=== PATIENT | female | born 1930 | race Caucasian/White ===

== ENCOUNTER 2016-11-01 22:27 | Emergency (ER) | payer MEDICARE, OTHER ==
[~2016-11-01] VITALS: Ht 152.4 cm; Wt 62.7 kg
[~2016-11-01 22:27] MED LIST: ALLO300T2 PO; ASCO1TAB12 PO; ATEN25TA PO; CHOL10008 PO; DIAZ10TA3 PO; FISH1CAP16 PO; FUR20 PO; GEMF600T3 PO; LEVO50TA6 PO; LISI-567 PO; LOPE1TAB13 PO; MAGN100T5 PO; NITR0.4T6 SL; OMEG1CAP25 PO; POTA20TA16 PO; WARF5TAB7 PO
[2016-11-01 22:28] VITALS: BP 124/73; PULSE 81; RESP 16; O2SAT 98
[2016-11-01 23:11] VITALS: BP 123/60; PULSE 67; RESP 16; O2SAT 98
[2016-11-01 23:11] LABS: BASOPHILS % (AUTO) 0.4 % (0-3); EOSINOPHILS % (AUTO) 2.2 % (0-5); MONOCYTES % (AUTO) 14.5 % (4-12); Mean Corpuscular Hemoglobin 33.4 pg (27.0-35.0); Mean Corpuscular Volume 100.2 fL (81-100); NEUTROPHILS % (AUTO) 49.1 % (40-74); Platelet Count 176 bil/L (150-400)
--- NOTE | 2016-11-01 23:16 | ED.REPORT ---
HPI-Chest Pain 40 and Over Date of Service Nov 01, 2016 ED Provider: Tyrone Mcgregor MD The pt is a 86 y/o female w/ a hx of chronic atrial fibrillation on Coumadin, congestive heart failure, and hypertension coming into the ED complaining of sharp substernal chest pain onset this evening. Patient reports previously experiencing angina, but this pain was different from prior episodes. She describes the pain as radiating up to her ears and jaw, which has not happened to her previously. Patient states that her symptoms started after she drank a cold glass of water. The patient took 2x doses of nitroglycerin ( 2012), waiting 15 minutes between doses The patient resolved after the second dose. Patient also reports recent dyspnea on exertion but is not currently short of breath. She had never had a heart attack or stent, and had a stress test on 02/02 which showed normal myocardial perfusion images. Yawning and standing up makes the pain return briefly. She was also taking an antibiotic for MRSA on her left leg, last changing the dressing this afternoon at 1pm. She developed diarrhea from the antibiotic and is taking Imodium and yogurt. Her PCP is Erika Fabian but she has only newly established with this physician. The patient does not have a POLST form. Nursing Notes Stated Complaint: CHEST PAIN Chief Complaint: Chest Pain Nursing Notes Reviewed: Yes Allergies: Coded Allergies: fenofibrate (Verified Allergy, Intermediate, RASH, 11/01/16) Scheduled Allopurinol (Allopurinol) 300 Mg Tablet 300 MG PO DAILY Ascorbate Calcium/Bioflavonoid (Jenny-C 500 mg Tablet) 1 Each Tablet 1 EACH PO DAILY Atenolol (Atenolol) 25 Mg Tablet 25 MG PO DAILY Cholecalciferol (Vitamin D3) (Vitamin D3) 1,000 Unit Tab.chew 1,000 UNIT PO DAILY Furosemide (Furosemide) 20 Mg Tab 20 MG PO DAILY Gemfibrozil (Gemfibrozil) 600 Mg Tablet 600 MG PO BIDAC Levothyroxine (Levothyroxine) 50 Mcg Tablet 50 MCG PO DAILY Lisinopril (Lisinopril) 20 Mg Tablet 20 MG PO DAILY Loperamide/Simethicone (Imodium Multi-Symptom Rel Cplt) 1 Each Tablet 2 EACH PO BID After first loose stool, 1 tablet (2mg) after each subsequent bowel movement. Do not exceed 16mg in 24 hours Magnesium Amino Acid Chelate (Magnesium) 100 Mg Tablet 100 MG PO DAILY Austin-3 Fatty Acids/Fish Oil (Austin 3 Fish Oil Softgel) 1 Each Capsule.dr 2 EACH PO DAILY Potassium Chloride (Potassium Chloride) 20 Meq Tab.er.prt 20 MEQ PO DAILY TAKE WITH FOOD Warfarin Sodium (Warfarin Sodium) 5 Mg Tablet 7.5 MG PO Mo, Th Warfarin Sodium (Warfarin Sodium) 5 Mg Tablet 5 MG PO Tu,We,Fr,Sa, Price Scheduled PRN Diazepam (Diazepam) 10 Mg Tablet 5-10 MG PO TID PRN PRN For Anxiety Nitroglycerin SL (Nitroglycerin SL) 0.4 Mg Tab.subl 0.4 MG SL PRN For Chest Pain Miscellaneous Medications Fish Oil/Borage/Flax/Om3,6,9#1 ([place] 3-6-9 Complex Softgel) 400 Mg Capsule 400 MG PO General Time Seen by MD: 23:05 Chief Complaint Chest pain Hx Obtained From: Patient Arrived By: Walk-in Sudden in Onset?: Yes Onset Occurred: 5 - 8 hours ago Symptom Duration: Intermittent Location: : Substernal Quality: Painful Severity: Current: No pain currently Severity: Maximum: Moderate Recent Healthcare: No recent hospitalization, Recent doctor visit Similar Sx Previous: Yes Past Medical History Past Medical History 1. Chronic atrial fibrillation. 2. Coumadin anticoagulation. 3. Hypertension. 4. Hyperlipidemia. 5. MRSA left leg 6. Hypothyroidism. 7. Gout. 8. Sigmoid diverticulosis with history of diverticulitis. 9. Multiple knee surgeries. 10. Tubal ligation. 12. CHF 13. Pulmonary HTN Past Surgical History Reports: Tubal ligation Smoking History Never Smoker Social History Alcohol Use: 1-3 per week Other Social History: Good social support, Lives alone, Local resident Review of Systems Respiratory: Reports: Dyspnea on exertion, Denies: Shortness of breath Cardiovascular: Reports: Chest pain (Intermittent and radiates up to jaw and ears), Dyspnea on exertion GI: Reports: Diarrhea Complete sys rev & neg: except as marked. Physical Exam Initial Vital Signs Vital Signs (First) Date Time Temp Pulse Resp B/P Pulse Ox O2 Delivery O2 Flow Rate FiO2 11/01/16 22:28 36.2 81 16 124/73 98 Room Air Initial VS: Reviewed, Vital signs normal Head / Eyes: Atraumatic, Normocephalic, PERRL ENT: Conjunctiva normal, No scleral icterus Skin: Warm, Dry, No cyanosis Neurologic: Alert, Oriented, Nonfocal Psychiatric: Mood/affect normal, Behavior normal, Normal thought content General/Constitutional: Awake, Alert, No acute distress, Well hydrated Respiratory / Chest: Atraumatic, Breath sounds NL, Breath sounds = bilat, No respiratory distress, No rales, No rhonchi, No wheezing, No chest tenderness Cardiovascular: Heart rate NL, Regular rhythm, Heart sounds NL, No murmurs Abdomen: Atraumatic, Soft Neck: Supple, No JVD Lower Extremity / Pelvis / MS: No swelling, No edema Upper Extremity / MS: No swelling, No edema Interpretation & Diagnostics Lab Results Interpretation Result Diagram: 11/01/16 2255 11/01/16 2255 Test 11/01/16 22:55 11/02/16 01:03 White Blood Count 8.1th/mm3 (3.8-10.1) Red Blood Count 4.10mil/mm3 (3.90-5.20) Hemoglobin 13.7g/dL (12.0-15.6) Hematocrit 41.1% (35.0-46.0) Mean Corpuscular Volume 100.2fL (81-100) Mean Corpuscular Hemoglobin 33.4pg (27.0-35.0) Mean Corpuscular Hemoglobin Concent 33.3% (32.0-37.0) Red Cell Distribution Width 14.2% (12.3-15.4) Platelet Count 176bil/L (150-400) Neutrophils (%) (Auto) 49.1% (40-74) Lymphocytes (%) (Auto) 33.7% (14-46) Monocytes (%) (Auto) 14.5% (4-12) Eosinophils (%) (Auto) 2.2% (0-5) Basophils (%) (Auto) 0.4% (0-3) Sodium Level 134mEq/L (134-144) Potassium Level 3.8mEq/L (3.5-5.2) Chloride Level 96mEq/L (97-108) Carbon Dioxide Level 22mmol/L (18-29) Blood Urea Nitrogen 27mg/dL (8-27) Creatinine 1.00mg/dL (0.57-1.00) Estimat Glomerular Filtration Rate 75mL/min (>59) Glucose Level 119mg/dL (60-99) Calcium Level 9.5mg/dL (8.5-10.1) Magnesium Level 1.8mg/dL (1.6-2.6) Total Bilirubin 0.8mg/dL (0.0-1.2) Aspartate Amino Transf (AST/SGOT) 35U/L (0-50) Alanine Aminotransferase (ALT/SGPT) 15U/L (0-32) Alkaline Phosphatase 69U/L (25-165) Troponin T 0.010ug/L (0.0-0.011) Total Protein 6.5g/dL (6.4-8.4) Albumin 3.5g/dL (3.4-5.0) Hold Garg Top Tube Received (Received) Hold Urine Received (Received) Lab values outside NL range: no clinical significance. ECG Interpretation ECG Interpretation: Rate 68 Atrial fibrillation LVH with secondary repolarization abnormality Time: 22:50 Interpreted by: ED physician ECG Interpretation: Rate 67 Atrial fibrillation Probable LVH with secondary repolarization abnormality Interpreted by: ED physician Normal ECG Interpretation: No change from prior ECGs X-Ray Chest Interpretation Chest Xray Interpretation: Impression: No acute disease View: Portable, 1 view Interpretation / Wet Read by: Wet read ED physician Re-Eval/Medical Decision Med Decision/Clinical Course 86-year-old female who had an episode of chest pain several hours ago relieved by 2 nitroglycerin. She states that its different than her usual angina and seemed to be related to swallowing and yawning. She thought it might be from her esophagus. EKG 2 are negative. Troponin is negative. She has never had an PA or stent placement. She had a negative nuclear medicine heart scan in 2012. I suspicion for heart disease as a causative agent is very low. She will be discharged home to maximize antacid treatment. Source of Hx: Old records Time of Eval: 02:15 Patient Status: Condition improved Re-Evaluation/Progress Note: Pt rechecked. Informed pt of plan for treatment. Chest x-ray, EKG, and labs were negative. Pt understands and agrees with plan for treatment. F/U instructions and RTER warnings given. All questions addressed. Counseled Regarding: Diagnosis, Lab results, Need for follow-up, When/why to return to ED Discharge & Departure Primary Impression: Chest pain with low risk of acute coronary syndrome Disposition: Home Discharge Condition All VS Reviewed: Yes Condition: Stable Patient Instructions: Chest Pain (ED) Additional Instructions: Your EKG 2 is normal. There is no elevation of your heart enzyme test. All the other testing that we have done is also normal. I suspect that your discomfort is related to GERD and esophageal spasm. Return to the emergency room if you get significant or sustained worsening of your pain. Follow up with your regular doctor to discuss further evaluation. Referrals: Lorena Fabian MD (PCP) Scribe Attestation Portions of this note were transcribed by Clyde Walsh and Marian Pedroza. I, Dr. Mcgregor personally performed the history, physical exam and medical decision- making; I reviewed and confirmed the accuracy of the information in the transcribed note. Signed by: Clyde Walsh and Marian Pedroza, Scribes, 11/01/16 and 0343. copies to: Lorena Fabian MD, Howard L MD Nov 01, 2016 23:16 lCyde Walsh Nov 01, 2016 23:25 Marian Pedroza Nov 02, 2016 03:29
[2016-11-01 23:59] LABS: Magnesium 1.8 mg/dL (1.6-2.6); TROPONIN T 0.01 ug/L (0.0-0.011)
[2016-11-02 00:27] VITALS: BP 116/63; PULSE 62; RESP 14; O2SAT 98
[2016-11-02 01:43] VITALS: BP 104/61; PULSE 63; RESP 14; O2SAT 99
[2016-11-02 02:56] VITALS: BP 109/75; PULSE 63; RESP 16; O2SAT 99
--- NOTE | 2016-11-02 06:43 | DRSVH ---
PROCEDURE: X-RAY CHEST ONE VIEW, PORTABLE ([id number]) INDICATIONS: chest pain TECHNIQUE: One view of the chest was acquired. COMPARISON: [facility], CR, XR CHEST 1VW (PORTABLE), 06/16/2015, 15:54. FINDINGS: Surgical changes and devices: None. Lungs and pleura: No pleural effusions or pneumothorax. Mild increased vascularity. Mediastinum: Mediastinal contours appear normal. Heart size is enlarged. Bones and chest wall: No suspicious bony lesions. Overlying soft tissues appear unremarkable. IMPRESSION: Cardiomegaly with increased pulmonary vascularity suggestive of edema. Dictated by: Tavia Alcocer M.D. on 11/02/2016 at 6:40 Approved by: Tavia Alcocer M.D. on 11/02/2016 at 6:41
== END 2016-11-02 02:57 | disposition home or self-care (01) ==
LOC: SED 22:27
DX: R07.2 Precordial pain (principal); I11.0 Hypertensive heart disease with heart failure; I48.2 Chronic atrial fibrillation; E03.9 Hypothyroidism, unspecified; Z79.01 Long term (current) use of anticoagulants; Z88.8 Allergy status to other drugs, medicaments and biological substances

== ENCOUNTER 2017-01-04 18:10 | Emergency (ER) | payer MEDICARE, OTHER ==
[~2017-01-04] VITALS: Ht 152.4 cm; Wt 68.5 kg
[2017-01-04 18:16] VITALS: BP 126/73; PULSE 75; RESP 20; O2SAT 97
== END 2017-01-04 19:13 | disposition left against medical advice (07) ==
LOC: SED 18:29
DX: Z53.21 Procedure and treatment not carried out due to patient leaving prior to being seen by health care provider (principal)

== ENCOUNTER 2017-02-06 02:41 | Observation (INO) | payer MEDICARE, OTHER ==
[~2017-02-06] VITALS: Ht 152.4 cm; Wt 62.7 kg
[2017-02-06] VITALS (9 sets, daily range): BP systolic 94–125; BP diastolic 49–72; PULSE 58–92; RESP 16–27; O2SAT 94–100
--- NOTE | 2017-02-06 02:56 | ED.REPORT ---
HPI-Trauma Minor / Fall Date of Service Feb 06, 2017 ED Provider: Tyrone Mcgregor MD Pt is an 86 y/o female anticoagulated on Warfarin w/ a hx of chronic a-fib, HTN , HLD, CHF, recurrent lower extremity cellulitis, presenting to the ED via EMS due to ground level fall which occurred prior to arrival. The patient lives with her friend who was sleeping and he heard a thud in the kitchen prompting him to find her on the ground with mildly decreased LOC. She is normally sharp and AOx4 but after the fall she has been slightly altered. EMS arrived to find the patient on the ground with GCS of 14. She does not remember the fall but remembers the events prior to and after it. No obvious head trauma, blood sugar 110. Her systolic BP was found to be in the 80s therefore EMS gave the patient NS on route with good improvement. She denies any pain. Nursing Notes Stated Complaint: DECREASED LOC Chief Complaint: Multiple Trauma/Fall Nursing Notes Reviewed: Yes Allergies: Coded Allergies: fenofibrate (Verified Allergy, Intermediate, RASH, 02/06/17) Scheduled Allopurinol (Allopurinol) 300 Mg Tablet 300 MG PO DAILY Ascorbate Calcium/Bioflavonoid (Jenny-C 500 mg Tablet) 1 Each Tablet 1 EACH PO DAILY Atenolol (Atenolol) 25 Mg Tablet 25 MG PO DAILY Cholecalciferol (Vitamin D3) (Vitamin D3) 1,000 Unit Tab.chew 1,000 UNIT PO DAILY Furosemide (Furosemide) 20 Mg Tab 20 MG PO DAILY Gemfibrozil (Gemfibrozil) 600 Mg Tablet 600 MG PO BIDAC Levothyroxine (Levothyroxine) 50 Mcg Tablet 50 MCG PO DAILY Lisinopril (Lisinopril) 20 Mg Tablet 20 MG PO DAILY Loperamide/Simethicone (Imodium Multi-Symptom Rel Cplt) 1 Each Tablet 2 EACH PO BID After first loose stool, 1 tablet (2mg) after each subsequent bowel movement. Do not exceed 16mg in 24 hours Magnesium Amino Acid Chelate (Magnesium) 100 Mg Tablet 100 MG PO DAILY [place]edar-3 Fatty Acids/Fish Oil ([place]edar 3 Fish Oil Softgel) 1 Each Capsule.dr 2 EACH PO DAILY Potassium Chloride (Potassium Chloride) 20 Meq Tab.er.prt 20 MEQ PO DAILY TAKE WITH FOOD Warfarin Sodium (Warfarin Sodium) 5 Mg Tablet 7.5 MG PO Mo, Th Warfarin Sodium (Warfarin Sodium) 5 Mg Tablet 5 MG PO Tu,We,Fr,Sa, Price Scheduled PRN Diazepam (Diazepam) 10 Mg Tablet 5-10 MG PO TID PRN PRN For Anxiety Nitroglycerin SL (Nitroglycerin SL) 0.4 Mg Tab.subl 0.4 MG SL PRN For Chest Pain Miscellaneous Medications Fish Oil/Borage/Flax/Om3,6,9#1 ([place] 3-6-9 Complex Softgel) 400 Mg Capsule 400 MG PO General Time Seen by MD: 02:41 Chief Complaint Fall Hx Obtained From: Patient, EMS Arrived By: Ambulance Onset Occurred: Just prior to arrival Symptom Duration: Since onset Severity: Current: No pain currently Severity: Maximum: No pain Similar Sx Previous: No Past Medical History Past Medical History 1. Chronic atrial fibrillation. 2. Coumadin anticoagulation. 3. Hypertension. 4. Hyperlipidemia. 5. MRSA left leg 6. Hypothyroidism. 7. Gout. 8. Sigmoid diverticulosis with history of diverticulitis. 9. Multiple knee surgeries. 10. Tubal ligation. 12. CHF 13. Pulmonary HTN Past Surgical History Reports: Tubal ligation Smoking History Never Smoker Social History Alcohol Use: 1-3 per week Other Social History: Good social support, Lives alone, Local resident Ambulatory Status Independent Review of Systems Musculoskeletal: Denies: Back pain, Extremity pain, Neck pain Neurologic: Reports: Change LOC, Denies: Headache Complete sys rev & neg: except as marked. Cardiovascular: Denies: Chest pain GI: Denies: Abdominal pain Physical Exam Initial Vital Signs Vital Signs (First) Date Time Temp Pulse Resp B/P Pulse Ox O2 Delivery O2 Flow Rate FiO2 02/06/17 02:45 36.6 72 24 99/60 96 Room Air Initial VS: Reviewed, Vital signs abnormal Head / Eyes: Atraumatic, Normocephalic, PERRL ENT: Mucous membranes moist, Conjunctiva normal, No scleral icterus Abdomen / GI: Soft, Non-tender, No guarding, No rebound, No distention Skin: Warm, Dry, No cyanosis Neurologic: Alert, Oriented, Nonfocal Psychiatric: Mood/affect normal, Behavior normal, Normal thought content General/Constitutional: Awake, Alert, No acute distress, Cooperative, Not toxic appearing Sleeping but easily arousable Neck: Atraumatic, Supple, Full range of motion, Non-tender, No midline vertebral tend Respiratory / Chest: Breath sounds NL, Breath sounds = bilat, No respiratory distress, No rales, No rhonchi, No wheezing, No stridor, No chest tenderness Cardiovascular: Heart rate NL, Heart sounds NL, No murmurs Heart Rate / Rhythm: Positive: Irreg irregular rhythm Upper Extremity / MS: No deformity, Neurologic intact, Vascular intact Skin tear over left elbow Interpretation & Diagnostics Lab Results Interpretation Result Diagram: 02/06/17 0245 02/06/17 0245 Test 02/06/17 02:45 White Blood Count 9.4th/mm3 (3.8-10.1) Red Blood Count 3.81mil/mm3 (3.90-5.20) Hemoglobin 12.8g/dL (12.0-15.6) Hematocrit 37.8% (35.0-46.0) Mean Corpuscular Volume 99.2fL (81-100) Mean Corpuscular Hemoglobin 33.6pg (27.0-35.0) Mean Corpuscular Hemoglobin Concent 33.9% (32.0-37.0) Red Cell Distribution Width 16.7% (12.3-15.4) Platelet Count 162bil/L (150-400) Neutrophils (%) (Auto) 45.1% (40-74) Lymphocytes (%) (Auto) 39.4% (14-46) Monocytes (%) (Auto) 13.4% (4-12) Eosinophils (%) (Auto) 1.9% (0-5) Basophils (%) (Auto) 0.1% (0-3) Prothrombin Time 12.9sec (8.1-12.5) Prothromb Time International Ratio 1.20ratio Sodium Level 133mEq/L (134-144) Potassium Level 4.3mEq/L (3.5-5.2) Chloride Level 100mEq/L (97-108) Carbon Dioxide Level 18mmol/L (18-29) Blood Urea Nitrogen 33mg/dL (8-27) Creatinine 1.15mg/dL (0.57-1.00) Estimat Glomerular Filtration Rate 64mL/min (>59) Glucose Level 100mg/dL (60-99) Calcium Level 9.5mg/dL (8.5-10.1) Magnesium Level 1.9mg/dL (1.6-2.6) Total Bilirubin 0.7mg/dL (0.0-1.2) Aspartate Amino Transf (AST/SGOT) 43U/L (0-50) Alanine Aminotransferase (ALT/SGPT) 23U/L (0-32) Alkaline Phosphatase 70U/L (25-165) Troponin T 0.014ug/L (0.0-0.011) Total Protein 5.9g/dL (6.4-8.4) Albumin 3.2g/dL (3.4-5.0) ECG Interpretation ECG Interpretation: A-fib rate 73 Probable LVH Anterior Q waves Time: 03:26 Interpreted by: ED physician Normal ECG Interpretation: No acute ischemic changes, No change from prior ECGs ECG Interpretation: Repeat EKG unchanged Time: 05:14 Interpreted by: ED physician CT Head Interpretation Conclusion: No acute intracranial hemorrhage or calvarial fracture. Senescent changes. Interpreted by Philipp Bermudez MD Study: Head CT no contrast Interpretation / Wet Read by: Interpret - Radiologist Re-Eval/Medical Decision Med Decision/Clinical Course 86-year-old female who fell during the night. She was found to be somewhat confused by family. She is on Coumadin but her INR was subtherapeutic at 1.2. Head CT scan is negative. Troponin was elevated at 0.14 and her EKG showed no evidence of ischemia or infarct. Remainder of the workup is negative with chest x-ray and urinalysis pending. She will be admitted to the hospital for further workup Re-Evaluation/Progress : Time of Eval: 05:47 Re-Evaluation/Progress Note: Pt rechecked. Informed pt of need for admission for syncopal workup. Pt understands and agrees with plan for admission. All questions addressed. Consultation : Referral / Consult Name: Ernestine Justice DO Consulted With: Hospitalist Call Returned at: 05:48 It Investment/Portfolio Manager: Will see patient, Agrees with eval, Agrees with plan, Accepts admit Counseled Regarding: Diagnosis, Lab results, Need for admission Discharge & Departure Impression: Primary Impression: Syncope Syncope type: unspecified Qualified Code: R55 - Syncope and collapse Additional Impressions: Fall from ground level Elevated troponin Subtherapeutic international normalized ratio (INR) Disposition: ADMITTED TO HOSPITAL Discharge Condition All VS Reviewed: Yes Condition: Stable Referrals: Lorena Fabian MD (PCP) Scribe Attestation Portions of this note were transcribed by Kana Long. I, Dr. Mcgregor personally performed the history, physical exam and medical decision-making; I reviewed and confirmed the accuracy of the information in the transcribed note. copies to: Lorena Fabian MD, Howard L MD Feb 06, 2017 02:56 KANA LONG Feb 06, 2017 03:02
[2017-02-06 03:06] LABS: BASOPHILS % (AUTO) 0.1 % (0-3); EOSINOPHILS % (AUTO) 1.9 % (0-5); MONOCYTES % (AUTO) 13.4 % (4-12); Mean Corpuscular Hemoglobin 33.6 pg (27.0-35.0); Mean Corpuscular Volume 99.2 fL (81-100); NEUTROPHILS % (AUTO) 45.1 % (40-74); Platelet Count 162 bil/L (150-400)
[2017-02-06 03:21] LABS: INR 1.2 ratio
[2017-02-06 03:26] LABS: TROPONIN T 0.014 ug/L (0.0-0.011)
[2017-02-06 03:37] LABS: Magnesium 1.9 mg/dL (1.6-2.6)
[2017-02-06 06:15] LABS: APPEARANCE,URINE CLEAR (CLEAR,HAZY); COLOR,URINE YELLOW (YELLOW)
[2017-02-06 06:16] LABS: OCCULT BLOOD,URINE NEGATIVE (NEGATIVE); UROBILINOGEN,URINE NORMAL (NORMAL)
[2017-02-06] MEDS ORDERED: Ondansetron 2 mg/mL 2 mL Inj IVPUSH PRN ×2 (06:35→07:10)
[2017-02-06] MEDS ORDERED: Alum-Mag Hydrox-Simeth 30 mL Suspension PO PRN ×2 (06:35→07:10)
[2017-02-06] MEDS ORDERED: Polyethylene Glycol (PEG) 17 Gm Powder PO PRN (07:10)
--- NOTE | 2017-02-06 07:36 | PCM.HPMED ---
Subjective Date of Service Feb 06, 2017 Primary Provider: Admitting Physician: Ernestine Justice DO Primary Care Physician: Lorena Fabian MD Attending Physician: Ernestine Justice DO Admit Status: From the Emergency Department, 23-Hour Observation, Remote Telemetry Chief Complaint: Syncopal episode, ground level fall History of Present Illness: Is an 86-year-old female who is on warfarin however subtherapeutic for history of chronic atrial fibrillation, history of hyperlipidemia hypertension. Has history of lower extremity edema with recurrent lower extremity cellulitis. She was brought in by EMS due to ground-level fall which occurred prior to arrival. Patient lives with a son and they heard that and called EMS. Patient had no obvious head trauma. Blood sugar was 110. She was found to have low blood pressure in her in the 80s. Systolic. However that responded to IV normal saline. Per ER M.D. patient was dysarthric. Patient does not recall previous events. CT scan of head without contrast was negative. Protein was slightly elevated 0.14. EKG showed no evidence of ischemia. EKG revealed A. fib at a rate of 73 with global LVH anterior Q waves. After the fact this morning son calls and patient may have accidentally taken for Valium tablets last night. He thinks that she may have thought they were Tylenol. Upon questioning the patient she tells me she thinks she took some Tylenol but was not aware of taking diazepam. This morning she is able to answer questions appropriately. And on exam she has no focal deficits. Review of Systems: Denies any fevers chills cough all other review of systems are reviewed and are negative except for as in history of present illness. Allergies Coded Allergies: fenofibrate (Verified Allergy, Intermediate, RASH, 02/06/17) Home Medications Scheduled Allopurinol (Allopurinol) 300 Mg Tablet 300 MG PO DAILY Ascorbate Calcium/Bioflavonoid (Jenny-C 500 mg Tablet) 1 Each Tablet 1 EACH PO DAILY Atenolol (Atenolol) 25 Mg Tablet 25 MG PO DAILY Cholecalciferol (Vitamin D3) (Vitamin D3) 1,000 Unit Tab.chew 1,000 UNIT PO DAILY Furosemide (Furosemide) 20 Mg Tab 20 MG PO DAILY Gemfibrozil (Gemfibrozil) 600 Mg Tablet 600 MG PO BIDAC Levothyroxine (Levothyroxine) 50 Mcg Tablet 50 MCG PO DAILY Lisinopril (Lisinopril) 20 Mg Tablet 20 MG PO DAILY Loperamide/Simethicone (Imodium Multi-Symptom Rel Cplt) 1 Each Tablet 2 EACH PO BID After first loose stool, 1 tablet (2mg) after each subsequent bowel movement. Do not exceed 16mg in 24 hours Magnesium Amino Acid Chelate (Magnesium) 100 Mg Tablet 100 MG PO DAILY [place]-3 Fatty Acids/Fish Oil ([place] 3 Fish Oil Softgel) 1 Each Capsule.dr 2 EACH PO DAILY Potassium Chloride (Potassium Chloride) 20 Meq Tab.er.prt 20 MEQ PO DAILY TAKE WITH FOOD Warfarin Sodium (Warfarin Sodium) 5 Mg Tablet 7.5 MG PO Mo, Th Warfarin Sodium (Warfarin Sodium) 5 Mg Tablet 5 MG PO ,,Fr,Sa, Price Scheduled PRN Diazepam (Diazepam) 10 Mg Tablet 5-10 MG PO TID PRN PRN For Anxiety Nitroglycerin SL (Nitroglycerin SL) 0.4 Mg Tab.subl 0.4 MG SL PRN For Chest Pain PMH Past Medical History Past Medical History 1. Chronic atrial fibrillation. 2. Coumadin anticoagulation. 3. Hypertension. 4. Hyperlipidemia. 5. MRSA left leg 6. Hypothyroidism. 7. Gout. 8. Sigmoid diverticulosis with history of diverticulitis. 9. Multiple knee surgeries. 10. Tubal ligation. 12. CHF 13. Pulmonary HTN Past Surgical History Reports: Tubal ligation Family History Patient denies any significant family history such as coronary artery disease , stroke history. Social History Hx Alcohol Use: No Hx Substance Use: No Hx Tobacco Use: No Smoking Status: Never Smoker Living Arrangement: with Family Exam Vital Signs Vital Sign - Last Date Time Temp Pulse Resp B/P Pulse Ox O2 Delivery O2 Flow Rate FiO2 02/06/17 06:55 62 02/06/17 06:42 36.4 18 114/72 95 Room Air Exam Constitutional: Elderly female resting in bed in no acute distress Head: Normocephalic atraumatic Neck: Carotids 2+ over 4 without bruits Chest: Clear to auscultation Cor: Regular rate and rhythm, S1-S2 2/6 systolic ejection murmur Abdomen: Soft nontender bowel sounds present Extremities: Bilateral lower extremity stasis dermatitis with some superficial skin tears noted Psych: Mood and affect are appropriate Neuro: Alert and oriented 3, motor strength is intact bilaterally, speech appears normal Lab and Diagnostics Labs Laboratory Tests 72 Hours Test 02/06/17 02:45 02/06/17 06:00 White Blood Count 9.4th/mm3 (3.8-10.1) Red Blood Count 3.81mil/mm3 (3.90-5.20) Hemoglobin 12.8g/dL (12.0-15.6) Hematocrit 37.8% (35.0-46.0) Mean Corpuscular Volume 99.2fL (81-100) Mean Corpuscular Hemoglobin 33.6pg (27.0-35.0) Mean Corpuscular Hemoglobin Concent 33.9% (32.0-37.0) Red Cell Distribution Width 16.7% (12.3-15.4) Platelet Count 162bil/L (150-400) Neutrophils (%) (Auto) 45.1% (40-74) Lymphocytes (%) (Auto) 39.4% (14-46) Monocytes (%) (Auto) 13.4% (4-12) Eosinophils (%) (Auto) 1.9% (0-5) Basophils (%) (Auto) 0.1% (0-3) Prothrombin Time 12.9sec (8.1-12.5) Prothromb Time International Ratio 1.20ratio Sodium Level 133mEq/L (134-144) Potassium Level 4.3mEq/L (3.5-5.2) Chloride Level 100mEq/L (97-108) Carbon Dioxide Level 18mmol/L (18-29) Blood Urea Nitrogen 33mg/dL (8-27) Creatinine 1.15mg/dL (0.57-1.00) Estimat Glomerular Filtration Rate 64mL/min (>59) Glucose Level 100mg/dL (60-99) Calcium Level 9.5mg/dL (8.5-10.1) Magnesium Level 1.9mg/dL (1.6-2.6) Total Bilirubin 0.7mg/dL (0.0-1.2) Aspartate Amino Transf (AST/SGOT) 43U/L (0-50) Alanine Aminotransferase (ALT/SGPT) 23U/L (0-32) Alkaline Phosphatase 70U/L (25-165) Troponin T 0.014ug/L (0.0-0.011) Total Protein 5.9g/dL (6.4-8.4) Albumin 3.2g/dL (3.4-5.0) Urine Color Yellow (YELLOW) Urine Appearance Clear (CLEAR,HAZY) Urine pH 5.0 (5.0-8.0) Urine Specific [place] 1.010 (1.003-1.035) Urine Protein Negativemg/dL (NEG,TRACE) Urine Glucose (UA) Negativemg/dL (NEGATIVE) Urine Ketones Negativemg/dL (NEGATIVE) Urine Occult Blood Negative (NEGATIVE) Urine Nitrite Negative (NEGATIVE) Urine Bilirubin Negative (NEGATIVE) Urine Urobilinogen Normalmg/dL (NORMAL) Urine Leukocyte Esterase Negative (NEGATIVE) Urine RBC 0-2/hpf (0-2) Urine WBC 0-5/hpf (0-5) Urine Epithelial Cells Occasional/hpf (NONE-MOD) Urine Crystals None seen (NONE SEEN) Urine Bacteria Moderate/hpf (NONE-FEW) Urine Hyaline Casts 5/20/lpf (NONE) Urine Granular Casts None seen (NONE SEEN) Urine Waxy Casts None seen (NONE SEEN) Urine Red Blood Cell Casts None seen (NONE SEEN) Urine White Blood Cell Casts None seen (NONE SEEN) Urine Mucus None seen (None Seen) Urine Trichomonas None seen (NONE SEEN) Urine Yeast None (NONE SEEN) Urinalysis Comment None Urine Culture Reflexed Indicated Result Diagram: 02/06/17 0245 02/06/17 0245 12-lead ECG EKG is A. fib rate of 64 with Q in 1 and 2 and most likely LVH with repolarization abnormalities. Cardiac Echo Impressions Echocardiogram done 10/20/2015 revealed moderate-severe concentric left ventricular hypertrophy that is worse apically producing distal cavitary obliteration and a small left ventricular cavity, consistent with apical variant of hypertrophic cardiomyopathy. No evidence for left ventricular outflow obstruction. Left ventricular systolic function is normal without focal abnormal motion abnormalities with ejection fraction estimated to be 65-70 %. Right ventricle was normal in size. There is severe pulmonary hypertension with right ventricular systolic pressure estimated 98 mmHg is marked biatrial enlargement. Right greater than left. There is severe tricuspid regurgitation. Mild mitral regurgitation. Mild to moderate aortic regurgitation and mild pulmonic regurgitation. Patient was in atrial fibrillation at that time. Assessment & Plan # Acute encephalopathy with dysarthria and syncopal episode, acute, present on admission - Possible CVA/TIA versus diazepam overdose - We will proceed with MRI MRA of brain without contrast and carotid duplex study and echocardiogram -Until results of MRI comes back we will hold Coumadin therapy -Speech therapy occupational therapy and physical therapy consultations -Patient was improved this morning from earlier last night and suspect may be related to Valium overdose. -Check fasting lipid panel -Continue with telemetry # Elevated troponin, acute, present on admission -Check serial troponins -Check echocardiogram #Hyperlipidemia, chronic -Continue with her gemfibrozil. -We will not place on statins as she is on gemfibrozil and may not be on a statin because of intolerance -Check fasting lipid panel #Stage II chronic kidney disease, present on admission -Monitor renal function #Bilateral lower extremity edema, chronic, present on admission -Continue with her oral Lasix therapy #DVT prophylaxis -We will go ahead and use subcutaneous heparin until get results of MRI regarding possible CVA. Negative for CVA will go ahead and proceed with Coumadin therapy to be monitored by pharmacy. #CODE STATUS -Discussed with patient and wishes DNR/DNI VTE Prophylaxis: Sub-Q Heparin (Unfractionated), SCDs Resuscitation Status: DNR/DNI:Do Not Resuscitate/Intubate Time spent 60 minutes Myesha Olvera MD Feb 06, 2017 07:36
[2017-02-06] MEDS: Potassium Chloride 20 mEq SR Tablet PO SCH (08:33)
[2017-02-06] MEDS: Heparin 5,000 Unit/mL Inj SUBQ SCH ×2 (08:33→17:26)
--- NOTE | 2017-02-06 08:55 | NUR ---
Admit Pt [place] [facility] [place] [facility] via Ed, report received from ZAKI RN. Pt arrived via stretcher and was too somnolent to transfer without assistance. Pt alert and oriented to self, confused, son at bedside believes pt took 40 mg of Diazepam on accident thinking it was Tylenol. Pt placed on CPOx to monitor O2 sats until meds were off. Pt arrived with new bandage on right calf from ED, wound care was consulted, and dressing changed by wound care. Pt has 2 ulcers on right calf r/t PVD, also has scabs on right foot at the end of the great toe. Pt resting comfortably in bed.
--- NOTE | 2017-02-06 08:56 | DRSVH ---
PROCEDURE: CT BRAIN WITHOUT CONTRAST ([id number]) INDICATIONS: fall on warfarin TECHNIQUE: Noncontrast 4.5 mm thick angled axial sections acquired from the foramen magnum to the vertex, with c oronal reformats. COMPARISON: [facility], CT, CT BRAIN WO CON, 09/30/2015, 14:39. FINDINGS: Image quality: Excellent. CSF spaces: Basal cisterns are patent. No extra-axial fluid collections. The ventricles are symmet julius in size and shape. There is mild cerebral volume loss, with resultant ventricular and sulcal pro minence. Brain: No intracranial hemorrhage, mass, or mass effect. There are subcortical, periventricular and deep white matter hypodensities consistent with mild chronic small vessel ischemic changes. There i s intracranial internal carotid artery atherosclerosis. Skull and face: Calvarium and visualized facial bones appear intact, without suspicious lesions. Sinuses: Visualized sinuses and mastoids are clear. IMPRESSION: 1. No acute intracranial abnormality. 2. Mild chronic white matter small vessel ischemic changes and cerebral volume loss. Dictated by: Sulaiman Lozano M.D. on 02/06/2017 at 8:53 Approved by: Sulaiman Lozano M.D. on 02/06/2017 at 8:54
--- NOTE | 2017-02-06 09:58 | DRSVH ---
PROCEDURE: X-RAY CHEST ONE VIEW, PORTABLE ([id number]) INDICATIONS: confusion TECHNIQUE: One view of the chest was acquired. COMPARISON: [facility], CR, XR CHEST 1VW (PORTABLE), 06/16/2015, 15:[address]), 11/01/2016, 22:45. FINDINGS: Surgical changes and devices: None. Lungs and pleura: No pleural effusions or pneumothorax. Lungs are clear, and interstitium is promin ent. Mediastinum: Mediastinal contours appear normal. Heart size is enlarged. Bones and chest wall: No suspicious bony lesions. Overlying soft tissues appear unremarkable. IMPRESSION: Cardiomegaly redemonstrated and mild interstitial prominence is again noted. Although kendal bted, mild early developing CHF cannot be excluded and clinical correlation is recommended. Dictated by: Roby Hancock [facility] Interpreted: Julio Mann MD on 02/06/2017 at 9:05 Approved by: Julio Mann M.D. on 02/06/2017 at 9:56
[2017-02-06] MEDS ORDERED: TORS20TA3 PO (10:08)
[2017-02-06] MEDS ORDERED: CYAN10008 PO (10:08)
[2017-02-06] MEDS ORDERED: HYDR-4003 PO (10:08)
--- NOTE | 2017-02-06 10:18 | NUR ---
Evaluation completed. Please go to "Notes" then click on "Assessments and Notes" (bottom left corner of screen). Then select appropriate discipline tab on top of screen.
[2017-02-06] MEDS ORDERED: HYDROcodone-APAP 5-325 mg Tablet PO PRN (10:30)
--- NOTE | 2017-02-06 11:03 | NUR ---
Case Management: [employer] and Medicare Part D pamphlet delivered and explained to pt. and son. All questions answered. Signed original placed in chart. Copy left at bedside.
--- NOTE | 2017-02-06 11:31 | NUR ---
Evaluation completed. Please go to "Notes" then click on "Assessments and Notes" (bottom left corner of screen). Then select appropriate discipline tab on top of screen.
--- NOTE | 2017-02-06 13:33 | NUR ---
Inpatient Wound Nurse Patient seen for assessment of RLE venous wounds. BLE spongy, extensive pitting edema, mottled, with extensive scaling and flaking. L leg cool. Great toe tip, frontal plane, circular black area 0.1 cm L x 0.3 cm W; 2nd toe dorsum, circular black area 0.4 cm L x 0.2 cm W; 4th toe frontal plane and dorsum, circular black areas, each 0.1 cm L x 0.1 cm W. RLE warm. Posterior calf venous wound measures 5.5. cm L x 4 cm W x 0.2 cm D; wound bed covered with adherent yellow slough, edges well adhered but slightly rolled, periwound erythemic, moderate drainage is odorous and serosanguionous. Care elicited pain response from patient who otherwise slept through assessment. Distal to primary wound is second wound, 1 cm L x 1.5 cm W x 0.2 cm D, wound bed covered in adherent yellow slough, edges well adhered, periwound erythemic. Proximal to primary wound is third wound, 1 cm L x 0.5 cm W x 0.1 cm D, wound bed covered in adherent yellow slough, edges well adhered, periwound erythemic. All wounds were cleansed, blotted dry, periwounds swabbed with skin prep. Wound beds were covered with Aquacel Extra Ag, then strip of Mepilex sheet foam, and then limb wrapped from toes to popliteal space with Kerlix and RASHAUN. CWON will follow, and will complete conversation with Wound Center as patient is seen there as outpatient, to determine further care.
--- NOTE | 2017-02-06 14:05 | DRSVH ---
PROCEDURE: US BILATERAL DUPLEX DOPPLER IMAGING OF THE CAROTIDS ([id number]) INDICATIONS: R/O Carotid Disease if no MRA or CTA Neck TECHNIQUE: Color and pulse Doppler interrogation was performed of both carotid systems, with image documentation and velocity measurements. COMPARISON: [facility], US, US CAROTID DPLX DOPPLER BILAT, 10/20/2015, 11:26. FINDINGS: All stenosis calculations are based on NASCET criteria. Right side: Brachial blood pressure: 110/63 mm Hg. Common Carotid Artery(Distal) PSV: 69.40 cm/s Internal Carotid Artery PSV- Proximal: 32.20 cm/s Mid-lon.90 cm/s Distal: 42.60 cm/s EDV - Proximal: 5.90 cm/s Mid-lon.50 cm/s Distal: 6.70 cm/s External Carotid Artery(Proximal) PSV: 77.80 cm/s ICA/CCA PSV ratio: 0.6 Jacinto scale imaging description: Minimal plaque. Percent internal carotid artery stenosis: Less than 50%. Vertebral artery: Flow direction is antegrade. Left side: Brachial blood pressure: 104/67 mm Hg. Common Carotid Artery(Distal) PSV: 59.80 cm/s Internal Carotid Artery PSV - Proximal: 35.60 cm/s Mid-lon.50 cm/s Distal: 35.50 cm/s EDV - Proximal: 5.10 cm/s Mid-lon.10 cm/s Distal: 4.80 cm/s External Carotid Artery(Proximal) PSV: 47.60 cm/s ICA/CCA PSV ratio: 1.2 Jacinto scale imaging description: Minimal plaque. Percent internal carotid artery stenosis: Less than 50%. Vertebral artery: Flow direction is antegrade. IMPRESSION: Less than 50% bilateral internal carotid artery stenosis. Dictated by: Roby Hancock [facility] Interpreted: Julio Mann MD on 02/06/2017 at 13:50 Approved by: Julio Mann M.D. on 02/06/2017 at 14:03
--- NOTE | 2017-02-06 17:18 | NUR ---
Social Work-initial assessment/ readiness for discharge: Data:See initial assessment. Pt is a 86 y/o female who was admitted on 02/06/17 for syncope per H&P. Pt's insurance is [place] and PCP is Lorena Fabian MD. EMR reviewed. SW met with pt and son Abraham at bedside, SW role explained. Pt sleeping during assessment. Pt resides at home and her son stays with her a majority of the time. Pt uses a fww at baseline and does not drive. Son states pt is currently open with [facility] services and has no SNF history. Pt has no photography assistant care insurance or VA benefits. SW discussed DPOA/ advanced directive, son confirms they have completed this, SW encouraged a copy to be brought in. PT has seen pt and recommended HH services. MD order received for resume HH. KENNEDI spoke with Thomas Agudelo with [facility] who confirms pt is open on services, access given. Pt's son to provide transport home. SW provided discharge planning checklist and encouraged pt and son to call with questions, SW provided phone number. SW will continue to follow. Assessment:pt who is open with HH. Plan:Pt to discharge home when medically stable via POV. Resume HH orders will be needed from MD. SW will continue to follow. JOHNNY Park Addendum: 02/06/17 at 1722 by TURNER TAVARES SS Amended: Links added.
[2017-02-07] MEDS: Heparin 5,000 Unit/mL Inj SUBQ SCH ×3 (00:43→16:16)
[2017-02-07 00:47] VITALS: BP 104/72; PULSE 64; RESP 16; O2SAT 98
[2017-02-07 03:47] VITALS: BP 122/68; PULSE 64; RESP 16; O2SAT 96
[2017-02-07 04:52] VITALS: PULSE 60
[2017-02-07 08:00] VITALS: PULSE 72
--- NOTE | 2017-02-07 08:05 | PCM.PNMED ---
Subjective Date of Service Feb 07, 2017 Subjective Patient sitting in a chair and eating breakfast. She appears mildly confused. When answering questions and not always appropriate. Exam Vital Signs Vital Sign - Last Date Time Temp Pulse Resp B/P Pulse Ox O2 Delivery O2 Flow Rate FiO2 02/07/17 04:52 60 02/07/17 03:47 36.6 16 122/68 96 Room Air Intake and Output 02/06/17 02/06/17 02/07/17 Cumulative From/Thru 15:00 23:00 07:00 02/06/17 02:45 - 02/07/17 05:55 Intake Total 472 ml 50 ml 522 ml Output Total 950 ml 200 ml 1150 ml Balance -478 ml -150 ml -628 ml Intake Oral 472 ml 50 ml 522 ml Output Urine Total 950 ml 200 ml 1150 ml # Voids 1 1 Exam Constitutional: Elderly female in no acute distress Head: Normocephalic atraumatic Chest: Clear to auscultation Cor: Regular rate and rhythm S1-S2 Abdomen: Soft nontender bowel sounds present Extremities: No pedal edema Skin: No rashes Psych mood and affect are somewhat blunted Neuro: She is alert she is oriented to person and when asked what year it is she says 1017 and asked where she is [facility]. Moves all extremities equally Lab and Diagnostics Laboratory Tests 72 Hours Test 02/06/17 02:45 02/06/17 06:00 02/06/17 13:06 White Blood Count 9.4th/mm3 (3.8-10.1) Red Blood Count 3.81mil/mm3 (3.90-5.20) Hemoglobin 12.8g/dL (12.0-15.6) Hematocrit 37.8% (35.0-46.0) Mean Corpuscular Volume 99.2fL (81-100) Mean Corpuscular Hemoglobin 33.6pg (27.0-35.0) Mean Corpuscular Hemoglobin Concent 33.9% (32.0-37.0) Red Cell Distribution Width 16.7% (12.3-15.4) Platelet Count 162bil/L (150-400) Neutrophils (%) (Auto) 45.1% (40-74) Lymphocytes (%) (Auto) 39.4% (14-46) Monocytes (%) (Auto) 13.4% (4-12) Eosinophils (%) (Auto) 1.9% (0-5) Basophils (%) (Auto) 0.1% (0-3) Prothrombin Time 12.9sec (8.1-12.5) Prothromb Time International Ratio 1.20ratio Sodium Level 133mEq/L (134-144) Potassium Level 4.3mEq/L (3.5-5.2) Chloride Level 100mEq/L (97-108) Carbon Dioxide Level 18mmol/L (18-29) Blood Urea Nitrogen 33mg/dL (8-27) Creatinine 1.15mg/dL (0.57-1.00) Estimat Glomerular Filtration Rate 64mL/min (>59) Glucose Level 100mg/dL (60-99) Hemoglobin A1c 6.0% (4.8-5.6) Calcium Level 9.5mg/dL (8.5-10.1) Magnesium Level 1.9mg/dL (1.6-2.6) Total Bilirubin 0.7mg/dL (0.0-1.2) Aspartate Amino Transf (AST/SGOT) 43U/L (0-50) Alanine Aminotransferase (ALT/SGPT) 23U/L (0-32) Alkaline Phosphatase 70U/L (25-165) Troponin T 0.014ug/L (0.0-0.011) < 0.010ug/L (0.0-0.011) Total Protein 5.9g/dL (6.4-8.4) Albumin 3.2g/dL (3.4-5.0) Triglycerides Level 69mg/dL (0-149) Cholesterol Level 125mg/dL (100-199) LDL Cholesterol, Calculated 54.200mg/dL (0-99) VLDL Cholesterol 13.800mg/dL HDL Cholesterol 57mg/dL (>39) Cholesterol/HDL Ratio 2.19 (0.0-4.4) Urine Color Yellow (YELLOW) Urine Appearance Clear (CLEAR,HAZY) Urine pH 5.0 (5.0-8.0) Urine Specific [place] 1.010 (1.003-1.035) Urine Protein Negativemg/dL (NEG,TRACE) Urine Glucose (UA) Negativemg/dL (NEGATIVE) Urine Ketones Negativemg/dL (NEGATIVE) Urine Occult Blood Negative (NEGATIVE) Urine Nitrite Negative (NEGATIVE) Urine Bilirubin Negative (NEGATIVE) Urine Urobilinogen Normalmg/dL (NORMAL) Urine Leukocyte Esterase Negative (NEGATIVE) Urine RBC 0-2/hpf (0-2) Urine WBC 0-5/hpf (0-5) Urine Epithelial Cells Occasional/hpf (NONE-MOD) Urine Crystals None seen (NONE SEEN) Urine Bacteria Moderate/hpf (NONE-FEW) Urine Hyaline Casts 5/20/lpf (NONE) Urine Granular Casts None seen (NONE SEEN) Urine Waxy Casts None seen (NONE SEEN) Urine Red Blood Cell Casts None seen (NONE SEEN) Urine White Blood Cell Casts None seen (NONE SEEN) Urine Mucus None seen (None Seen) Urine Trichomonas None seen (NONE SEEN) Urine Yeast None (NONE SEEN) Urinalysis Comment None Urine Culture Reflexed Indicated Result Diagram: 02/06/17 0245 02/06/17 0245 12-lead ECG EKG is A. fib rate of 64 with Q in 1 and 2 and most likely LVH with repolarization abnormalities. Cardiac Echo Impressions Echocardiogram done 10/20/2015 revealed moderate-severe concentric left ventricular hypertrophy that is worse apically producing distal cavitary obliteration and a small left ventricular cavity, consistent with apical variant of hypertrophic cardiomyopathy. No evidence for left ventricular outflow obstruction. Left ventricular systolic function is normal without focal abnormal motion abnormalities with ejection fraction estimated to be 65-70 %. Right ventricle was normal in size. There is severe pulmonary hypertension with right ventricular systolic pressure estimated 98 mmHg is marked biatrial enlargement. Right greater than left. There is severe tricuspid regurgitation. Mild mitral regurgitation. Mild to moderate aortic regurgitation and mild pulmonic regurgitation. Patient was in atrial fibrillation at that time. Assessment & Plan # Acute encephalopathy with dysarthria and syncopal episode, acute, present on admission - Possible CVA/TIA versus diazepam overdose - We will proceed with MRI MRA of brain without contrast and echocardiogram ( which has not been done yesterday and still await these testings to be done). -Until results of MRI comes back we will hold Coumadin therapy -Speech therapy occupational therapy and physical therapy consultations -Patient was improved this morning from earlier last night and suspect may be related to Valium overdose. -Check fasting lipid panel -Continue with telemetry -Carotid duplex study did not show any significant stenoses. # Elevated troponin, acute, present on admission -Check serial troponins, second troponin was normal first and was only borderline elevated -Check echocardiogram #Hyperlipidemia, chronic -Continue with her gemfibrozil. -We will not place on statins as she is on gemfibrozil and may not be on a statin because of intolerance -Check fasting lipid panel #Stage II chronic kidney disease, present on admission -Monitor renal function #Bilateral lower extremity edema, chronic, present on admission -Continue with her oral Lasix therapy #DVT prophylaxis -We will go ahead and use subcutaneous heparin until get results of MRI regarding possible CVA. Negative for CVA will go ahead and proceed with Coumadin therapy to be monitored by pharmacy. #CODE STATUS -Discussed with patient and wishes DNR/DNI VTE Prophylaxis: Sub-Q Heparin (Unfractionated), SCDs Resuscitation Status: DNR/DNI:Do Not Resuscitate/Intubate Time spent 30 minutes Myesha Olvera MD Feb 07, 2017 08:04
--- NOTE | 2017-02-07 08:38 | NUR ---
Off unit Pt off unit to MRI, [facility] notified. Addendum: 02/07/17 at 1216 by MATTHIEU MARTINEZ RN Pt back on unit at 0920, [facility] aware.
--- NOTE | 2017-02-07 09:26 | DRSVH ---
PROCEDURE: MRA ANGIOGRAM HEAD WITHOUT CONTRAST ([id number]) INDICATIONS: SYNCOPE, EVALUATE FOR CVA TECHNIQUE: Noncontrast axial 3-D [id number] MR angiogram, with 3-dimensional maximum intensity projection (M IP) reformats of the internal carotid arteries and posterior circulation then performed. COMPARISON: None. FINDINGS: Image quality: Moderately compromised by patient motion during image acquisition, no definite acute d isease.. Anterior circulation: Intracranial internal carotid arteries demonstrate normal size and intralumina l flow signal. The flow within the paired anterior cerebral arteries is normal and symmetric. The f low within the middle cerebral arteries is normal and symmetric. The anterior communicating artery i s seen. No stenoses, occlusions, or aneurysms. Posterior circulation: Visualized portions of the vertebral arteries demonstrate normal caliber, and join to form a normal appearing basilar artery. The flow within the posterior cerebral arteries is normal and symmetric. No stenoses, occlusions, or aneurysms. IMPRESSION: The study is somewhat compromised by patient motion during image acquisition but no occlu arnel or aneurysm is suspected. Dictated by: Wilber Panchal M.D. on 02/07/2017 at 9:23 Approved by: Wilber Panchal M.D. on 02/07/2017 at 9:25
--- NOTE | 2017-02-07 09:29 | DRSVH ---
PROCEDURE: MRI BRAIN WITHOUT CONTRAST ([id number]) INDICATIONS: SYNCOPE,EVALUTE FOR CVA TECHNIQUE: Non-contrast axial T1 spin echo, axial T2 fast spin echo, sagittal and axial FLAIR, coronal T2 fast s pin echo, axial gradient echo, axial diffusion and ADC through the brain. COMPARISON: None. FINDINGS: Image quality: Excellent. CSF spaces: Ventricles appear symmetric in size and shape. Basal cisterns are patent. No extra-axi al fluid collections. Brain: No intracranial bleeds or mass effects. There is cerebral volume loss for age. There are pe riventricular and deep white matter chronic small vessel ischemic changes, and several scattered foci of susceptibility artifact seen on the gradient pulse sequence imaging. Brainstem appears normal. Diffusion-weighted images show no acute ischemic insults. No chronic ischemic insults. Normal intra vascular flow voids are present. Skull and face: Calvarial bone marrow is normal in signal. Orbits are normal. Sinuses: Sinuses and mastoids are clear. IMPRESSION: No acute or subacute stroke is found. There is a pattern of moderate microvascular ather osclerotic change in the deep white matter of each hemisphere, and also on the gradient imaging sensi tive to susceptibility artifact several scattered punctate foci of calcification or hemosiderin are s een within the deep white matter of each hemisphere, in a pattern suggestive of perhaps old trauma or amyloid angiopathy, mild in overall severity. Dictated by: Wilber Panchal M.D. on 02/07/2017 at 9:25 Approved by: Wilber Panchal M.D. on 02/07/2017 at 9:27
[2017-02-07] MEDS: Potassium Chloride 20 mEq SR Tablet PO SCH (09:47)
[2017-02-07 10:02] VITALS: BP 114/63; PULSE 64; RESP 16; O2SAT 95
--- NOTE | 2017-02-07 12:16 | NUR ---
Stroke education/Coumadin Pt provided Stroke Education booklet. Discussed with pt warning sx, risk factors, etc. Due to pt's forgetfulness, discussion will be done with son when arrives. Coumadin booklet provided as well.
[2017-02-07 15:24] VITALS: BP 109/73; PULSE 63; RESP 18; O2SAT 100
--- NOTE | 2017-02-07 15:43 | PCM.DIMED ---
Discharge Instructions Date of Service Feb 07, 2017 Dates of Hospitalization Feb 06, 2017 at 05:41 Discharge Diagnosis Discharge Diagnosis Acute encephalopathy thought to be secondary to diazepam overdose ,unintentional Diet Discharge Diet: Heart Healthy Activity Discharge Activity: Limited until seen by PCP Call your provider Call your provider for: Fever or Chills, Shortness of breath, Bleeding, Chest pain, Vomitting, Excessive diarrhea, Weakness (unilateral) Patient Instructions Follow-up Provider: Monique Oakley MD Follow-up with PCP in: 1 week (sooner if problems.) Myesha Olvera MD Feb 07, 2017 15:43
--- NOTE | 2017-02-07 15:47 | NUR ---
Social Work: Discharge Data: Pt is on day 1 of hospitalization. EMR reviewed. Pt discussed in multidisciplinary rounds. D/C orders are in. MD orders ELECTRIC MOTOR ANALYST resume HH. ELECTRIC MOTOR ANALYST called [facility] notifying them of pt's discharge today and gave access. No further d/c planning needs identified at this time. ELECTRIC MOTOR ANALYST will continue to follow if needs arise. Assessment: Pt who is independent at baseline, currently capable of self care at this time. Plan: Pt will d/c home via POV today with resume [facility] for RN, PT. No further d/c planning needs identified at this time. ELECTRIC MOTOR ANALYST will continue to follow if needs arise. JOHNNY Burns
--- NOTE | 2017-02-07 15:53 | PCM.DC.MED ---
Discharge Summary Date of Service Feb 07, 2017 Dates of Hospitalization Date of Hospital Admission Feb 06, 2017 at 05:41 Date of Discharge: Feb 07, 2017 Providers: Admitting Physician: Ernestine Justice DO Primary Care Physician: Lorena Fabian MD Attending Physician: Myesha Olvera MD Diagnosis at Time of Discharge Diagnosis at Time of Discharge Acute encephalopathy thought to be secondary to diazepam overdose ,unintentional Procedures XRay, CTs & MRIs PROCEDURE: MRI BRAIN WITHOUT CONTRAST ([id number]) INDICATIONS: SYNCOPE,EVALUTE FOR CVA TECHNIQUE: Non-contrast axial T1 spin echo, axial T2 fast spin echo, sagittal and axial FLAIR, coronal T2 fast spin echo, axial gradient echo, axial diffusion and ADC through the brain. COMPARISON: None. FINDINGS: Image quality: Excellent. CSF spaces: Ventricles appear symmetric in size and shape. Basal cisterns are patent. No extra-axial fluid collections. Brain: No intracranial bleeds or mass effects. There is cerebral volume loss for age. There are periventricular and deep white matter chronic small vessel ischemic changes, and several scattered foci of susceptibility artifact seen on the gradient pulse sequence imaging. Brainstem appears normal. Diffusion- weighted images show no acute ischemic insults. No chronic ischemic insults. Normal intravascular flow voids are present. Skull and face: Calvarial bone marrow is normal in signal. Orbits are normal. Sinuses: Sinuses and mastoids are clear. IMPRESSION: No acute or subacute stroke is found. There is a pattern of moderate microvascular atherosclerotic change in the deep white matter of each hemisphere, and also on the gradient imaging sensitive to susceptibility artifact several scattered punctate foci of calcification or hemosiderin are seen within the deep white matter of each hemisphere, in a pattern suggestive of perhaps old trauma or amyloid angiopathy, mild in overall severity. Dictated by: Wilber Panchal M.D. on 02/07/2017 at 9:25 Approved by: Wilber Panchal M.D. on 02/07/2017 at 9:27 PROCEDURE: MRA ANGIOGRAM HEAD WITHOUT CONTRAST ([id number]) INDICATIONS: SYNCOPE, EVALUATE FOR CVA TECHNIQUE: Noncontrast axial 3-D [id number] MR angiogram, with 3-dimensional maximum intensity projection (MIP) reformats of the internal carotid arteries and posterior circulation then performed. COMPARISON: None. FINDINGS: Image quality: Moderately compromised by patient motion during image acquisition , no definite acute disease.. Anterior circulation: Intracranial internal carotid arteries demonstrate normal size and intraluminal flow signal. The flow within the paired anterior cerebral arteries is normal and symmetric. The flow within the middle cerebral arteries is normal and symmetric. The anterior communicating artery is seen. No stenoses, occlusions, or aneurysms. Posterior circulation: Visualized portions of the vertebral arteries demonstrate normal caliber, and join to form a normal appearing basilar artery. The flow within the posterior cerebral arteries is normal and symmetric. No stenoses, occlusions, or aneurysms. IMPRESSION: The study is somewhat compromised by patient motion during image acquisition but no occlusion or aneurysm is suspected. Dictated by: Wilber Panchal M.D. on 02/07/2017 at 9:23 Approved by: Wilber Panchal M.D. on 02/07/2017 at 9:25 PROCEDURE: US BILATERAL DUPLEX DOPPLER IMAGING OF THE CAROTIDS ([id number]) INDICATIONS: R/O Carotid Disease if no MRA or CTA Neck TECHNIQUE: Color and pulse Doppler interrogation was performed of both carotid systems, with image documentation and velocity measurements. COMPARISON: [facility], , US CAROTID DPLX DOPPLER BILAT, 2015, 11:26. FINDINGS: All stenosis calculations are based on NASCET criteria. Right side: Brachial blood pressure: 110/63 mm Hg. Common Carotid Artery(Distal) PSV: 69.40 cm/s Internal Carotid Artery PSV- Proximal: 32.20 cm/s Mid-lon.90 cm/s Distal: 42.60 cm/s EDV - Proximal: 5.90 cm/s Mid-lon.50 cm/s Distal: 6.70 cm/s External Carotid Artery(Proximal) PSV: 77.80 cm/s ICA/CCA PSV ratio: 0.6 Jacinto scale imaging description: Minimal plaque. Percent internal carotid artery stenosis: Less than 50%. Vertebral artery: Flow direction is antegrade. Left side: Brachial blood pressure: 104/67 mm Hg. Common Carotid Artery(Distal) PSV: 59.80 cm/s Internal Carotid Artery PSV - Proximal: 35.60 cm/s Mid-lon.50 cm/s Distal: 35.50 cm/s EDV - Proximal: 5.10 cm/s Mid-lon.10 cm/s Distal: 4.80 cm/s External Carotid Artery(Proximal) PSV: 47.60 cm/s ICA/CCA PSV ratio: 1.2 Jacinto scale imaging description: Minimal plaque. Percent internal carotid artery stenosis: Less than 50%. Vertebral artery: Flow direction is antegrade. IMPRESSION: Less than 50% bilateral internal carotid artery stenosis. Dictated by: Roby Hancock RRA Interpreted: Julio Mann MD on 02/06/2017 at 13:50 Approved by: Julio aMnn M.D. on 02/06/2017 at 14:03 ECG 12 Lead EKG is A. fib rate of 64 with Q in 1 and 2 and most likely LVH with repolarization abnormalities. Cardiac Echo Impression Echocardiogram done 10/20/2015 revealed moderate-severe concentric left ventricular hypertrophy that is worse apically producing distal cavitary obliteration and a small left ventricular cavity, consistent with apical variant of hypertrophic cardiomyopathy. No evidence for left ventricular outflow obstruction. Left ventricular systolic function is normal without focal abnormal motion abnormalities with ejection fraction estimated to be 65-70 %. Right ventricle was normal in size. There is severe pulmonary hypertension with right ventricular systolic pressure estimated 98 mmHg is marked biatrial enlargement. Right greater than left. There is severe tricuspid regurgitation. Mild mitral regurgitation. Mild to moderate aortic regurgitation and mild pulmonic regurgitation. Patient was in atrial fibrillation at that time. Echocardiogram is being performed on 02/07/2017 and patient will be discharged before results return and recommend primary care provider follow-up on those results. Brief History Is an 86-year-old female who is on warfarin however subtherapeutic for history of chronic atrial fibrillation, history of hyperlipidemia hypertension. Has history of lower extremity edema with recurrent lower extremity cellulitis. She was brought in by EMS due to ground-level fall which occurred prior to arrival. Patient lives with a son and they heard that and called EMS. Patient had no obvious head trauma. Blood sugar was 110. She was found to have low blood pressure in her in the 80s. Systolic. However that responded to IV normal saline. Per ER M.D. patient was dysarthric. Patient does not recall previous events. CT scan of head without contrast was negative. Protein was slightly elevated 0.14. EKG showed no evidence of ischemia. EKG revealed A. fib at a rate of 73 with global LVH anterior Q waves. After the fact this morning son calls and patient may have accidentally taken for Valium tablets last night. He thinks that she may have thought they were Tylenol. Upon questioning the patient she tells me she thinks she took some Tylenol but was not aware of taking diazepam. This morning she is able to answer questions appropriately. And on exam she has no focal deficits. Hospital Course # Acute encephalopathy with dysarthria and syncopal episode, acute, present on admission - Possible CVA/TIA versus diazepam overdose - We will proceed with MRI MRA of brain without contrast and echocardiogram ( which has not been done yesterday and still await these testings to be done). -Until results of MRI comes back we will hold Coumadin therapy -Speech therapy occupational therapy and physical therapy consultations -Patient was improved this morning from earlier last night and suspect may be related to Valium overdose. -Check fasting lipid panel -Continue with telemetry -Carotid duplex study did not show any significant stenoses. -Patient had MRI MRA without contrast of brain which did not show any acute abnormalities on day of discharge. Since stroke was ruled out by this study and we have her acute encephalopathy was secondary to Valium unintentional overdose will discharge back to home will resume Coumadin therapy -We will resume home health care RN and PT -Echocardiogram was done just prior to discharge and results are pending and to be followed up by her primary care provider as an outpatient # Elevated troponin, acute, present on admission -Check serial troponins, second troponin was normal first and was only borderline elevated -Check echocardiogram #Hyperlipidemia, chronic -Continue with her gemfibrozil. -We will not place on statins as she is on gemfibrozil and may not be on a statin because of intolerance -Check fasting lipid panel #Stage II chronic kidney disease, present on admission -Monitor renal function #Bilateral lower extremity edema, chronic, present on admission -Continue with her oral Lasix therapy #DVT prophylaxis -We will go ahead and use subcutaneous heparin until get results of MRI regarding possible CVA. Negative for CVA will go ahead and proceed with Coumadin therapy to be monitored by pharmacy. #CODE STATUS -Discussed with patient and wishes DNR/DNI Exam Vital Signs (Last) Date Time Temp Pulse Resp B/P Pulse Ox O2 Delivery O2 Flow Rate FiO2 02/07/17 15:24 36.6 63 18 109/73 100 Room Air Exam Constitutional: Elderly female in no acute distress Head: Normocephalic atraumatic Chest: Clear to auscultation Cor: Regular rate and rhythm S1-S2 Abdomen: Soft nontender bowel sounds present Extremities: No pedal edema Neuro: Alert and oriented 3, motor strength is intact bilaterally. Speech is intact. Test 02/06/17 02:45 02/06/17 06:00 02/06/17 13:06 White Blood Count 9.4th/mm3 (3.8-10.1) Red Blood Count 3.81mil/mm3 (3.90-5.20) Hemoglobin 12.8g/dL (12.0-15.6) Hematocrit 37.8% (35.0-46.0) Mean Corpuscular Volume 99.2fL (81-100) Mean Corpuscular Hemoglobin 33.6pg (27.0-35.0) Mean Corpuscular Hemoglobin Concent 33.9% (32.0-37.0) Red Cell Distribution Width 16.7% (12.3-15.4) Platelet Count 162bil/L (150-400) Neutrophils (%) (Auto) 45.1% (40-74) Lymphocytes (%) (Auto) 39.4% (14-46) Monocytes (%) (Auto) 13.4% (4-12) Eosinophils (%) (Auto) 1.9% (0-5) Basophils (%) (Auto) 0.1% (0-3) Prothrombin Time 12.9sec (8.1-12.5) Prothromb Time International Ratio 1.20ratio Sodium Level 133mEq/L (134-144) Potassium Level 4.3mEq/L (3.5-5.2) Chloride Level 100mEq/L (97-108) Carbon Dioxide Level 18mmol/L (18-29) Blood Urea Nitrogen 33mg/dL (8-27) Creatinine 1.15mg/dL (0.57-1.00) Estimat Glomerular Filtration Rate 64mL/min (>59) Glucose Level 100mg/dL (60-99) Hemoglobin A1c 6.0% (4.8-5.6) Calcium Level 9.5mg/dL (8.5-10.1) Magnesium Level 1.9mg/dL (1.6-2.6) Total Bilirubin 0.7mg/dL (0.0-1.2) Aspartate Amino Transf (AST/SGOT) 43U/L (0-50) Alanine Aminotransferase (ALT/SGPT) 23U/L (0-32) Alkaline Phosphatase 70U/L (25-165) Total Protein 5.9g/dL (6.4-8.4) Albumin 3.2g/dL (3.4-5.0) Triglycerides Level 69mg/dL (0-149) Cholesterol Level 125mg/dL (100-199) LDL Cholesterol, Calculated 54.200mg/dL (0-99) VLDL Cholesterol 13.800mg/dL HDL Cholesterol 57mg/dL (>39) Cholesterol/HDL Ratio 2.19 (0.0-4.4) Urine Color Yellow (YELLOW) Urine Appearance Clear (CLEAR,HAZY) Urine pH 5.0 (5.0-8.0) Urine Specific [place] 1.010 (1.003-1.035) Urine Protein Negativemg/dL (NEG,TRACE) Urine Glucose (UA) Negativemg/dL (NEGATIVE) Urine Ketones Negativemg/dL (NEGATIVE) Urine Occult Blood Negative (NEGATIVE) Urine Nitrite Negative (NEGATIVE) Urine Bilirubin Negative (NEGATIVE) Urine Urobilinogen Normalmg/dL (NORMAL) Urine Leukocyte Esterase Negative (NEGATIVE) Urine RBC 0-2/hpf (0-2) Urine WBC 0-5/hpf (0-5) Urine Epithelial Cells Occasional/hpf (NONE-MOD) Urine Crystals None seen (NONE SEEN) Urine Bacteria Moderate/hpf (NONE-FEW) Urine Hyaline Casts 5/20/lpf (NONE) Urine Granular Casts None seen (NONE SEEN) Urine Waxy Casts None seen (NONE SEEN) Urine Red Blood Cell Casts None seen (NONE SEEN) Urine White Blood Cell Casts None seen (NONE SEEN) Urine Mucus None seen (None Seen) Urine Trichomonas None seen (NONE SEEN) Urine Yeast None (NONE SEEN) Urinalysis Comment None Urine Culture Reflexed Indicated Troponin T < 0.010ug/L (0.0-0.011) Discharge Medications Discharge Medications Allopurinol (Allopurinol) 300 Mg Tablet 300 MG PO DAILY (Reported) Ascorbate Calcium/Bioflavonoid (Jenny-C 500 mg Tablet) 1 Each Tablet 1 EACH PO DAILY (Reported) Atenolol (Atenolol) 25 Mg Tablet 25 MG PO DAILY (Reported) Cholecalciferol (Vitamin D3) (Vitamin D3) 1,000 Unit Tab.chew 1,000 UNIT PO DAILY (Reported) Cyanocobalamin (Vitamin B-12) (Vitamin B-12) 1,000 Mcg Tablet 1,000 MCG PO DAILY (Reported) Gemfibrozil (Gemfibrozil) 600 Mg Tablet 300 MG PO DAILY (Reported) take 30 mins before meal Levothyroxine (Levothyroxine) 50 Mcg Tablet 50 MCG PO DAILY (Reported) Lisinopril (Lisinopril) 20 Mg Tablet 20 MG PO DAILY (Reported) Loperamide/Simethicone (Imodium Multi-Symptom Rel Cplt) 1 Each Tablet 2 EACH PO BID (Reported) After first loose stool, 1 tablet (2mg) after each subsequent bowel movement. Do not exceed 16mg in 24 hours Waymart-3 Fatty Acids/Fish Oil (Waymart 3 Fish Oil Softgel) 1 Each Capsule.dr 2 EACH PO DAILY (Reported) Potassium Chloride (Potassium Chloride) 20 Meq Tab.er.prt 20 MEQ PO DAILY ( Reported) TAKE WITH FOOD Torsemide (Torsemide) 20 Mg Tablet 20 MG PO DAILY (Reported) Warfarin Sodium (Warfarin Sodium) 5 Mg Tablet 5 MG PO DAILY (Reported) [facility] clinic regulates warfarin dosage, unless directed pt takes 5 mg daily. As needed Diazepam (Diazepam) 10 Mg Tablet 5-10 MG PO TID PRN PRN For Anxiety (Reported) Hydrocodone-Acetaminophen 5-325 mg (Hydrocodone-Acetaminophen 5-325 mg) 1 Each Tablet 0.5-1 TABLET PO q12 PRN PRN For Pain (Reported) Nitroglycerin SL (Nitroglycerin SL) 0.4 Mg Tab.subl 0.4 MG SL PRN For Chest Pain (Reported) Miscellaneous Medications Fish Oil/Borage/Flax/Om3,6,9#1 (Waymart 3-6-9 Complex Softgel) 400 Mg Capsule 400 MG PO (Reported) Followup Plan Disposition: Home with resuming home health care RN and physical therapy. Follow-up plan Needs follow-up and echocardiogram results as an outpatient Discharge Diet: Heart Healthy Discharge Activity: Limited until seen by PCP Follow-up Provider: Monique Oakley MD Follow-up with PCP in: 1 week (sooner if problems.) Time spent Greater than 30 minutes was spent in preparation of discharge with greater than 50% of that time dedicated to patient counseling and coordination of care. copies to: Monique Oakley MD, Cheryl A MD Feb 07, 2017 15:53
--- NOTE | 2017-02-07 16:38 | DRSVH ---
[facility] [address] [place] [address] Echocardiogram Report Name: CHRIS BASS LStudy Date: 02/07/2017 Height: 60 in Hospital Exam Location: [facility] Weight: 138 lb Gender: Female BSA: 1.6 m2 : 1930 Age: 86 yrs BP: 122/68 mmHg Reason For Study: CVA Ordering Physician: HOSPITALIST [facility] Performed By: Chantelle Villa [facility] Interpret[facility] Summary 1) Severe concentric left ventricular hypertrophy with small cavity size and hyperdynamic function (EF 70-75%). This could be due apical variant hypertrophic cardiomyopathy. 2) Normal right ventricular size with mildly reduced function. 3) Flattened septum is consistent with RV pressure/volume overload. 4) Severe biatrial enlargement, right worse than left. 5) Severe tricuspid regurgitation present. 6) Severe pulmonary hypertension, estimated systolic pulmonary pressure of 85mmHg. 7) Right sided filling pressures elevated based on IVC assessment. 8) Compared to the Echo done 10/20/2015, no significant change. Procedure: A two-dimensional transthoracic echocardiogram with color flow and Doppler was performed. The study quality was technically adequate. Comparison is made with the echocardiogram of 10/20/2015. A saline contrast injection was performed to assess for cardiac shunting. The patient was in normal sinus rhythm during the exam. Left Ventricle: The left ventricular cavity is small. There is severe concentric left ventricular hypertrophy. There is no echo evidence for significant left ventricular outflow tract obstruction. The ejection fraction is estimated to be 70-75%. The left ventricle is hyperdynamic. Flattened septum is consistent with RV pressure/volume overload. Assessment of diastolic parameters indicates a restrictive filling pattern of the left ventricle consistent with significantly elevated filling pressures. Right Ventricle: The right ventricle is normal size. Right ventricular systolic function is mildly reduced. Atria: Both atria are severely dilated. The interatrial septum is intact with no evidence for an atrial septal defect. Injection of contrast documented no interatrial shunt. Mitral Valve: The mitral valve leaflets are mildly calcified. There is mild to moderate mitral annular calcification. There is mild to moderate mitral regurgitation. Aortic Valve: The aortic valve is trileaflet. The aortic valve is mildly calcified. There is no hemodynamically significant valvular aortic stenosis. There is mild to moderate aortic regurgitation. Tricuspid Valve: The tricuspid valve leaflets are thin and pliable. There is severe tricuspid regurgitation. The right ventricular systolic pressure is estimated at 85 mmHg assuming a right atrial pressure of 15 mm Hg. Pulmonic Valve: The pulmonic valve leaflets are thin and pliable; valve motion is normal. There is mild pulmonic regurgitation. Great Vessels: The aortic root is normal size. The ascending aorta is normal in size. The IVC is dilated (diameter is greater than 2.1 cm) and it collapses less than 50% with a sniff. This suggests a high right atrial pressure of 15 mm Hg. Pericardium/ Pleura There is no pericardial effusion. There is no pleural effusion. MMode/2D Measurements & Calculations LVIDd: 3.5 cm RA long axis LVOT diam LVIDs: 2.0 cm LA A2 area: 28.5 cm FS: 42.6 % LA A4 area: 25.0 cm RA area asc Aorta IVSd: 2.0 cm LA length (vol): 6.4 cm Diam: 3.4 cm LVPWd: 0.86 cm LA vol: 94.1 ml : 39.0 cm LA vol index RA vol : 154.ml : 59.0 ml/m2 RA : 96.7 mm2 LV esteban. diameter/BSA LV sys. diameter/BSA (cm/m^2): 2.2 (cm/m^2): 1.3 Doppler Measurements & Calculations Ao V2 max: 126.1 cm/sec TR max ramo Ao V2 mean LV V1 max PG Ao max P.4 mmHg : 418.2 cm/sec : 85.9 cm/sec Ao mean P.3 mmHg TR max PG Ao V2 VTI LV V1 VTI LVOT Max Ramo : 70.1 mmHg : 14.0 cm : 68.7 cm/sec RENUKA(V,D): 2.0 cm2 RENUKA(I,D): 1.9 cm sev ratio: 0.51 RENUKA indexed to BSA (cm^2/m^2): 1.2 Reading Physician:04:37 PM
--- NOTE | 2017-02-07 18:13 | NUR ---
DISCHARGE Pt discharged home this evening at 1800, off unit accompanied by ROLO and pt's son, Abraham. Vital signs stable, denies pain and in no apparent distress. IV dc'd intact and all belongings returned. All instructions for diet, activity, medications, prescriptions and follow up reviewed with pt who reports understanding.
== END 2017-02-07 18:02 | disposition home health service (06) ==
LOC: SED 02:41 → MPC 05:41
PROVIDERS: ADMIT Internal Medicine; ATTEND Specialist
DX: G93.40 Encephalopathy, unspecified (principal); T42.4X1A Poisoning by benzodiazepines, accidental (unintentional), initial encounter; R55 Syncope and collapse; R47.1 Dysarthria and anarthria; R79.89 Other specified abnormal findings of blood chemistry; E78.5 Hyperlipidemia, unspecified; I12.9 Hypertensive chronic kidney disease with stage 1 through stage 4 chronic kidney disease, or unspecified chronic kidney disease; N18.2 Chronic kidney disease, stage 2 (mild); R60.0 Localized edema; I27.2 Other secondary pulmonary hypertension; I48.2 Chronic atrial fibrillation; I50.9 Heart failure, unspecified; M10.9 Gout, unspecified; E03.9 Hypothyroidism, unspecified; K57.30 Diverticulosis of large intestine without perforation or abscess without bleeding; W18.39XA Other fall on same level, initial encounter; Y93.01 Activity, walking, marching and hiking; Y92.010 Kitchen of single-family (private) house as the place of occurrence of the external cause; Y99.8 Other external cause status; Z79.01 Long term (current) use of anticoagulants; Z86.14 Personal history of Methicillin resistant Staphylococcus aureus infection; Z66 Do not resuscitate
CPT/HCPCS: 36415; 70450; 70544; 70551; 71010; 80053; 80061; 81000; 83036; 83735; 84484; 85025; 85610; 87086; 92610; 93005; 93880; 97161; 97530; 97602; 99285; C8929; G0378; G8978; G8979; J1644

== ENCOUNTER 2017-02-10 11:17 | Emergency (ER) | payer MEDICARE, OTHER ==
[~2017-02-10] VITALS: Ht 152.4 cm; Wt 60.0 kg
[~2017-02-10 11:17] MED LIST changes: +CYAN10008 PO; -FUR20 PO; +HYDR-4003 PO; -MAGN100T5 PO; +TORS20TA3 PO
[2017-02-10 11:21] VITALS: BP 136/80; PULSE 72; RESP 24; O2SAT 97
--- NOTE | 2017-02-10 11:28 | ED.REPORT ---
HPI-General Illness Date of Service Feb 10, 2017 ED Provider: Tomy Wells DO Patient is an 86 year old female with a hx of hypothyroidism, CVA, HTN, hyperlipidemia, CHF, and Afib on Coumadin who presents to the ED via EMS complaining of frequent falls onset today. Associated symptoms include increasing weakness and confusion, per pt's son. She denies hitting her head, neck pain, back pain, fever, abdominal pain, chest pain, SOB, dysuria, diarrhea , or any other symptoms. She has not been on any new medications. She has been taking [place] for a week but did not take any this morning. She took 1.5 [place] last night. Patient was discharged from the hospital 3 days ago after a stay for syncope and elevated troponin. Nursing Notes Stated Complaint: WEAK Chief Complaint: Multiple Trauma/Fall Nursing Notes Reviewed: Yes Allergies: Coded Allergies: fenofibrate (Verified Allergy, Intermediate, RASH, 02/06/17) Scheduled Allopurinol (Allopurinol) 300 Mg Tablet 300 MG PO DAILY Ascorbate Calcium/Bioflavonoid (Jenny-C 500 mg Tablet) 1 Each Tablet 1 EACH PO DAILY Atenolol (Atenolol) 25 Mg Tablet 25 MG PO DAILY Cholecalciferol (Vitamin D3) (Vitamin D3) 1,000 Unit Tab.chew 1,000 UNIT PO DAILY Cyanocobalamin (Vitamin B-12) (Vitamin B-12) 1,000 Mcg Tablet 1,000 MCG PO DAILY Gemfibrozil (Gemfibrozil) 600 Mg Tablet 300 MG PO DAILY take 30 mins before meal Levothyroxine (Levothyroxine) 50 Mcg Tablet 50 MCG PO DAILY Lisinopril (Lisinopril) 20 Mg Tablet 20 MG PO DAILY Loperamide/Simethicone (Imodium Multi-Symptom Rel Cplt) 1 Each Tablet 2 EACH PO BID After first loose stool, 1 tablet (2mg) after each subsequent bowel movement. Do not exceed 16mg in 24 hours [place]-3 Fatty Acids/Fish Oil ([place] 3 Fish Oil Softgel) 1 Each Capsule.dr 2 EACH PO DAILY Potassium Chloride (Potassium Chloride) 20 Meq Tab.er.prt 20 MEQ PO DAILY TAKE WITH FOOD Torsemide (Torsemide) 20 Mg Tablet 20 MG PO DAILY Warfarin Sodium (Warfarin Sodium) 5 Mg Tablet 5 MG PO DAILY [facility] clinic regulates warfarin dosage, unless directed pt takes 5 mg daily. Scheduled PRN Diazepam (Diazepam) 10 Mg Tablet 5-10 MG PO TID PRN PRN For Anxiety Hydrocodone-Acetaminophen 5-325 mg (Hydrocodone-Acetaminophen 5-325 mg) 1 Each Tablet 0.5-1 TABLET PO q12 PRN PRN For Pain Nitroglycerin SL (Nitroglycerin SL) 0.4 Mg Tab.subl 0.4 MG SL PRN For Chest Pain Miscellaneous Medications Fish Oil/Borage/Flax/Om3,6,9#1 ([place] 3-6-9 Complex Softgel) 400 Mg Capsule 400 MG PO General Time Seen by MD: 11:26 Chief Complaint Other (frequent falls ) Hx Obtained From: Patient, Son Arrived By: Ambulance Sudden in Onset?: Yes Onset Occurred: 1 - 4 hours ago Symptom Duration: Since onset Recent Healthcare: Recent doctor visit Past Medical History Past Medical History 1. Chronic atrial fibrillation. 2. Coumadin anticoagulation. 3. Hypertension. 4. Hyperlipidemia. 5. MRSA left leg 6. Hypothyroidism. 7. Gout. 8. Sigmoid diverticulosis with history of diverticulitis. 9. Multiple knee surgeries. 10. CVA 11. Diverticulitis 12. CHF 13. Pulmonary HTN 14. Skin cancer Past Surgical History Knee surgeries Reports: Tubal ligation Smoking History Never Smoker Social History Alcohol Use: 1-3 per week Other Social History: Good social support, Lives alone, Local resident Ambulatory Status Walker Review of Systems +frequent calls -hitting head Full Review of Systems Constitutional: Reports: Weakness - generalized, Denies: Fever Respiratory: Denies: Shortness of breath Cardiovascular: Denies: Chest pain GI: Denies: Abdominal pain, Diarrhea Female: Denies: Dysuria Musculoskeletal: Denies: Back pain, Neck pain Neurologic: Reports: Confusion Complete sys rev & neg: except as marked. Physical Exam Vital Signs Vital Signs Date Time Temp Pulse Resp B/P Pulse Ox O2 Delivery O2 Flow Rate FiO2 02/10/17 13:03 36.4 72 24 136/80 97 Room Air 02/10/17 11:21 36.4 72 24 136/80 97 Room Air Initial VS: Reviewed, Vital signs normal Head / Eyes: Atraumatic, Normocephalic Respiratory: Breath sounds normal, Clear to auscultation, No respiratory distress Cardiovascular: Regular rate & rhythm, Heart sounds normal Abdomen / GI: Soft, Non-tender Skin: Warm, Dry Psychiatric: Mood/affect normal, Behavior normal, Normal thought content General/Constitutional: Awake, Alert Neck: Atraumatic, Supple, Full range of motion Back: Atraumatic, No midline vertebral tend Lower Extremity / Pelvis / MS: No deformity Multiple, small, superficial abrasions from falls. Neurologic: Speech NL Disoriented to her age. NIH stroke scale score of 4 Interpretation & Diagnostics Lab Results Interpretation Result Diagram: 02/10/17 1125 02/10/17 1125 Test 02/10/17 11:25 02/10/17 12:38 White Blood Count 9.0th/mm3 (3.8-10.1) Red Blood Count 4.03mil/mm3 (3.90-5.20) Hemoglobin 13.7g/dL (12.0-15.6) Hematocrit 40.9% (35.0-46.0) Mean Corpuscular Volume 101.5fL (81-100) Mean Corpuscular Hemoglobin 34.0pg (27.0-35.0) Mean Corpuscular Hemoglobin Concent 33.5% (32.0-37.0) Red Cell Distribution Width 17.1% (12.3-15.4) Platelet Count 147bil/L (150-400) Neutrophils (%) (Auto) 41.2% (40-74) Lymphocytes (%) (Auto) 40.1% (14-46) Monocytes (%) (Auto) 17.5% (4-12) Eosinophils (%) (Auto) 0.9% (0-5) Basophils (%) (Auto) 0.2% (0-3) Prothrombin Time 13.2sec (8.1-12.5) Prothromb Time International Ratio 1.23ratio Activated Partial Thromboplast Time 30.0sec (22.8-33.0) Sodium Level 139mEq/L (134-144) Potassium Level 3.9mEq/L (3.5-5.2) Chloride Level 101mEq/L (97-108) Carbon Dioxide Level 19mmol/L (18-29) Blood Urea Nitrogen 29mg/dL (8-27) Creatinine 0.88mg/dL (0.57-1.00) Estimat Glomerular Filtration Rate 87mL/min (>59) Glucose Level 90mg/dL (60-99) Calcium Level 10.1mg/dL (8.5-10.1) Total Bilirubin 0.8mg/dL (0.0-1.2) Aspartate Amino Transf (AST/SGOT) 47U/L (0-50) Alanine Aminotransferase (ALT/SGPT) 27U/L (0-32) Alkaline Phosphatase 82U/L (25-165) Troponin T 0.010ug/L (0.0-0.011) Total Protein 6.5g/dL (6.4-8.4) Albumin 3.5g/dL (3.4-5.0) Urine Color Straw (YELLOW) Urine Appearance Hazy (CLEAR,HAZY) Urine pH 5.5 (5.0-8.0) Urine Specific [place] 1.005 (1.003-1.035) Urine Protein Negativemg/dL (NEG,TRACE) Urine Glucose (UA) Negativemg/dL (NEGATIVE) Urine Ketones Negativemg/dL (NEGATIVE) Urine Occult Blood Negative (NEGATIVE) Urine Nitrite Negative (NEGATIVE) Urine Bilirubin Negative (NEGATIVE) Urine Urobilinogen Normalmg/dL (NORMAL) Urine Leukocyte Esterase Negative (NEGATIVE) Urine RBC 0-2/hpf (0-2) Urine WBC 0-5/hpf (0-5) Urine Epithelial Cells Occasional/hpf (NONE-MOD) Urine Crystals None seen (NONE SEEN) Urine Bacteria Few/hpf (NONE-FEW) Urine Hyaline Casts None/lpf (NONE) Urine Granular Casts None seen (NONE SEEN) Urine Waxy Casts None seen (NONE SEEN) Urine Red Blood Cell Casts None seen (NONE SEEN) Urine White Blood Cell Casts None seen (NONE SEEN) Urine Mucus None seen (None Seen) Urine Trichomonas None seen (NONE SEEN) Urine Yeast None (NONE SEEN) Urinalysis Comment None Urine Culture Reflexed Not indicated ECG Interpretation ECG Interpretation: afib with rate 68 LVH Time: 12:48 X-Ray Chest Interpretation Chest Xray Interpretation: IMPRESSION: Persisting cardiomegaly. Otherwise, no acute pulmonary process. Dictated by: Tavia Alcocer M.D. on 02/10/2017 at 11:32 Approved by: Tavia Alcocer M.D. on 02/10/2017 at 11:32 View: Portable, 1 view Interpretation / Wet Read by: Interpret - Radiologist CT Head Interpretation IMPRESSION: No acute intracranial disease process. Dictated by: Krys Rivera MD, PhD on 02/10/2017 at 12:07 Approved by: Krys Rivera MD, PhD on 02/10/2017 at 12:10 Study: Head CT no contrast Interpretation / Wet Read by: Interpret - Radiologist Re-Eval/Medical Decision Med Decision/Clinical Course She presents with an episode of altered mental status after taking hydrocodone last night. Unclear whether this represents a TIA or sedation related to her contacts however her symptoms have resolved and she is back to normal baseline and ambulatory with a walker. No infectious findings The patient was offered an strongly recommended to be admitted and observed. The patient and her family declined this. In lieu of admission an MRI of the brain was ordered to fully exclude a subtle stroke. The patient had returned to normal baseline the family and patient requested discharge home rather than MRI. There was extensive discussion regarding the fact this may have been a TIA and that we cannot fully exclude this was only due to hydrocodone. The family understands this however given her other recent admission the wish to take her home. They do have home health arranged and will attempt to increase the number of hours at home health. Extensive return and follow-up precautions are given. Time of Eval: 14:44 Re-Evaluation/Progress Note: Patient refuses MRI and states that she is feeling much better. Sons are at bedside and agree that pt is back to her baseline. Son will call and set up additional home [place] hours. Pt is able to ambulate without falling. Discussed plan for discharge. Patient understands and agrees with plan. All questions addressed at this time. Counseled Regarding: Diagnosis, Lab results, Need for follow-up, When/why to return to ED Discharge & Departure Primary Impression: Altered level of consciousness Disposition: Home Discharge Condition All VS Reviewed: Yes Condition: Improved Additional Instructions: It is unclear whether your symptoms today were from oversedation due to hydrocodone or may have represented a TIA. However, you are feeling better. After our discussion you wish to go home.Stop taking hydrocodone. Use only Tylenol for pain. Follow-up with your regular doctor. Return to the ER as needed for recurrent altered mental status or other signs or symptoms of stroke or other concerns. Referrals: Lorena Fabian MD (PCP) Scribe Attestation Portions of this note were transcribed by Lety Nichole. I, Dr. Wells personally performed the history, physical exam and medical decision-making; I reviewed and confirmed the accuracy of the information in the transcribed note. Signed by: Katherine Crockett, 02/10/17 copies to: Lorena Fabian MD Risk Factors NIH Stroke Scale Level of Consciousness: Alert and responsive (0) Ask Month & Age: 1 question right (1) Open/Close Eyes/Hand [employer]: Performs both tasks (0) Horizontal EO Movements: None (0) Visual Elder: No visual loss (0) Facial Palsy: Normal symmetry (0) Right Arm Motor Drift (10s): Drift, not touch bed (1) Left Arm Motor Drift (10s): No drift 10 sec (0) Right Leg Motor Drift (5s): No drift 5 sec (0) Left Leg Motor Drift (5s): No drift 5 sec (0) Limb Ataxia FNF/Heel-Chau: Ataxia in 1 limb (1) Sensation (Arms/Legs/Face): No sensory loss (0) Language Aphasia: No aphasia, normal (0) Dysarthria: Slurring intelligible (1) Extinction/Inattention: No exctinct/inattent (0) NIHSS Score: 4 Time NIHSS Performed: 12:15 Date NIHSS Performed: Feb 10, 2017 )( IC Bleed Risk Strat Age (<1 yr or >60 yrs) Blood thinners RF Statements: Risk factors reviewed )( SAH Risk Stratification Hypertension RF Statements: Risk factors reviewed Tomy Wells DO Feb 10, 2017 11:28 LETY NICHOLE Feb 10, 2017 11:40
[2017-02-10 11:41] LABS: BASOPHILS % (AUTO) 0.2 % (0-3); EOSINOPHILS % (AUTO) 0.9 % (0-5); MONOCYTES % (AUTO) 17.5 % (4-12); Mean Corpuscular Volume 101.5 fL (81-100); NEUTROPHILS % (AUTO) 41.2 % (40-74); Platelet Count 147 bil/L (150-400)
[2017-02-10 12:02] LABS: INR 1.23 ratio
[2017-02-10 12:09] LABS: TROPONIN T 0.01 ug/L (0.0-0.011)
--- NOTE | 2017-02-10 12:11 | DRSVH ---
PROCEDURE: CT BRAIN WITHOUT CONTRAST ([id number]) INDICATIONS: Stroke, weakness, fall TECHNIQUE: Noncontrast 4.5 mm thick angled axial sections acquired from the foramen magnum to the vertex, with c oronal reformats. COMPARISON: [facility], CT, CT BRAIN WO CON, 02/06/2017, 2:47. [facility], C T, CT BRAIN WO CON, 09/30/2015, 14:39. [facility], CT, CT BRAIN WO CON, 07/20/2015, 15:18. [facility], MR, MR BRAIN WO CON, 02/07/2017, 8:44. FINDINGS: Image quality: Excellent. CSF spaces: Basal cisterns are patent. No extra-axial fluid collections. The ventricles are symmet julius in size and shape. Brain: No intracranial bleeds or masses. There is cerebral volume loss for age, with resultant vent ricular and sulcal prominence. There are periventricular and deep white matter chronic small vessel ischemic changes. Old, small, right caudate body lacunar infarct is noted which is stable compared to prior exams. There is intracranial internal carotid artery atherosclerosis. Skull and face: Calvarium and visualized facial bones appear intact, without suspicious lesions. Sma ll right frontal scalp swelling is noted. Sinuses: Visualized sinuses and mastoids are clear. IMPRESSION: No acute intracranial disease process. Dictated by: Krys Rivera MD, PhD on 02/10/2017 at 12:07 Approved by: Krys Rivera MD, PhD on 02/10/2017 at 12:10
[2017-02-10] MEDS ORDERED: 0.9% Sodium Chloride 500 ML IV ONE (12:25)
--- NOTE | 2017-02-10 12:34 | DRSVH ---
PROCEDURE: X-RAY CHEST ONE VIEW, PORTABLE ([id number]) INDICATIONS: WEAKNESS TECHNIQUE: One view of the chest was acquired. COMPARISON: [facility], CR, XR CHEST 1VW (PORTABLE), 02/06/2017, 6:16. FINDINGS: Surgical changes and devices: None. Lungs and pleura: No pleural effusions or pneumothorax. Lungs are clear. Mediastinum: Mediastinal contours appear normal. Heart size is enlarged. Bones and chest wall: No suspicious bony lesions. Overlying soft tissues appear unremarkable. IMPRESSION: Persisting cardiomegaly. Otherwise, no acute pulmonary process. Dictated by: Tavia Alcocer M.D. on 02/10/2017 at 11:32 Approved by: Tavia Alcocer M.D. on 02/10/2017 at 11:32
[2017-02-10 13:03] VITALS: BP 136/80; PULSE 72; RESP 24; O2SAT 97
[2017-02-10 13:17] LABS: APPEARANCE,URINE HAZY (CLEAR,HAZY); COLOR,URINE STRAW (YELLOW); PH,URINE 5.5 (5.0-8.0)
[2017-02-10 13:18] LABS: OCCULT BLOOD,URINE NEGATIVE (NEGATIVE); UROBILINOGEN,URINE NORMAL (NORMAL)
--- NOTE | 2017-02-10 14:22 | NUR ---
Evaluation completed. Please go to "Notes" then click on "Assessments and Notes" (bottom left corner of screen). Then select appropriate discipline tab on top of screen.
--- NOTE | 2017-02-10 15:37 | NUR ---
Inpatient Wound Nurse MAYE was asked to see patient for BLE wounds. A grade 3 skin tear approximately 5 cm L x 4 cm W was noted on lateral L knee. Venous wound noted to R posterior calf, unchanged from last week when patient was inpatient. BLE cool, dermatitis greatly improved from previous hospitalization. Venous wound was cleansed and covered with Aquacel Extra Ag, then limb wrapped with Kerlix and Coban with nearly zero tension. Skin tear was cleansed, covered with nonstick gauze and clear, adhesive dressing. Patient was instructed to reschedule outpatient appointment that she missed today.
== END 2017-02-10 15:26 | disposition home or self-care (01) ==
LOC: SED 11:17 → EDBD 11:17 → SED 15:26
DX: R41.82 Altered mental status, unspecified (principal); I11.0 Hypertensive heart disease with heart failure; E78.5 Hyperlipidemia, unspecified; I50.9 Heart failure, unspecified; E03.9 Hypothyroidism, unspecified; Z79.01 Long term (current) use of anticoagulants; Z85.828 Personal history of other malignant neoplasm of skin; Z86.73 Personal history of transient ischemic attack (TIA), and cerebral infarction without residual deficits; Z88.8 Allergy status to other drugs, medicaments and biological substances